=== PATIENT | male | born 1950 | race African-American/Black ===

== ENCOUNTER → 2017-03-23 | Outpatient (CLI) | payer MEDICARE ==
--- NOTE | 2017-03-23 10:33 | RADIOLOGY REPORT (SQ) ---
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 Images reviewed with lung, soft tissue and bone windows. Reconstructed coronal and sagittal MPR images reviewed. All images stored on PACS. All CT scanners at this facility use dose modulation, iterative reconstruction, and/or weight based d osing when appropriate to reduce radiation dose to as low as reasonably achievable (ALARA). [facility]: Dose Right [facility]: CareDose [facility]: Dose Right [facility]: Teradose 4D [facility]: [employer] CONTRAST TYPE AND DOSE: contrast/concentration: Isovue 370.00 mg/ml; Total Contrast Delivered: 80.0 ml; Total Saline Delivered: 55.0 ml RENAL FUNCTION: Creatinine 1.3 RADIATION DOSE: Up-to-date CT equipment and radiation dose reduction techniques were employed. CTDIv ol: 15.7 mGy. DLP: 609 mGy-cm. . LIMITATIONS: None. FINDINGS: LUNGS AND PLEURA: There are post therapeutic changes in the right perihilar region, with l kasia parenchymal volume loss, bandlike scarring and bronchiectasis likely related to remote prior radi ation. Stable scarring in the right posterior costophrenic sulcus of the lung. No acute infiltrates. No pleural effusion. No pneumothorax. Obstructive lung disease is present in the upper lobes. HILAR AND MEDIASTINAL STRUCTURES: No identified masses or abnormal nodes. HEART AND VASCULAR STRUCTURES: No aneurysm or dissection. No central pulmonary emboli. No pericardi al effusion. Heavily calcified coronary arteries HARDWARE: None in the chest. UPPER ABDOMEN: 3.7 cm right upper pole cortical cyst, 10 mm right upper pole probable hemorrhagic cys t unchanged from 2008. Limited exam. THYROID AND OTHER SOFT TISSUES: No masses. No adenopathy. BONES: No significant finding. OTHER: No other significant finding. IMPRESSION: No acute findings TECHNICAL DOCUMENTATION: JOB ID: [id number] Quality ID # [id number]: Final reports with documentation of one or more dose reduction techniques (e.g., Au tomated exposure control, adjustment of the mA and/or kV according to patient size, use of iterative reconstruction technique) 2010 [email or web address]- All Rights Reserved
== END ==
LOC: RAD 08:48
PROVIDERS: ATTEND Internal Medicine
DX: Z85.118 Personal history of other malignant neoplasm of bronchus and lung (principal); R05 Cough
CPT/HCPCS: 71260; 82565

== ENCOUNTER → 2017-04-17 | Outpatient (CLI) | payer MEDICARE ==
--- NOTE | 2017-04-17 13:05 | RADIOLOGY REPORT (SQ) ---
EXAM DESCRIPTION: KNEE LEFT 4 VIEWS COMPLETED DATE/TIME: 04/17/2017 12:16 pm REASON FOR STUDY: PAIN IN LEFT KNEE M25.562 PAIN IN LEFT KNEE COMPARISON: None. NUMBER OF VIEWS: Four views. TECHNIQUE: AP, lateral, and both oblique radiographic images acquired of the left knee. LIMITATIONS: None. FINDINGS: MINERALIZATION: Normal. BONES: No acute fracture or dislocation. No worrisome bone lesions. Lateral compartment osteophytes. JOINT: Joint effusion. Chondrocalcinosis. OTHER: No other significant finding. IMPRESSION: Chondrocalcinosis. Joint effusion. Lateral compartment osteophytes. TECHNICAL DOCUMENTATION: JOB ID: [id number] [employer]- All Rights Reserved
== END ==
LOC: OD 11:16
PROVIDERS: ATTEND Internal Medicine
DX: M25.562 Pain in left knee (principal)

== ENCOUNTER → 2017-08-18 | Outpatient (CLI) | payer MEDICARE ==
--- NOTE | 2017-08-18 11:42 | RADIOLOGY REPORT (SQ) ---
EXAM DESCRIPTION: CT CHEST WITH COMPLETED DATE/TIME: 08/18/2017 11:24 am REASON FOR STUDY: HEMOPTYSIS (R04.2) R04.2 HEMOPTYSIS COMPARISON: 09/26/2009, 02/11/2011, 06/29/2012, 09/13/2013, 09/29/2014, 03/23/2017 TECHNIQUE: CT scan of the chest performed using helical scanning technique with dynamic intravenous contrast injection. Images reviewed with lung, soft tissue and bone windows. Reconstructed coronal and sagittal MPR images reviewed. All images stored on PACS. All CT scanners at this facility use dose modulation, iterative reconstruction, and/or weight based d osing when appropriate to reduce radiation dose to as low as reasonably achievable (ALARA). [facility]: Dose Right [facility]: CareDose [facility]: Dose Right [facility]: Teradose 4D [facility]: [employer] CONTRAST TYPE AND DOSE: contrast/concentration: Isovue 370.00 mg/ml; Total Contrast Delivered: 80.0 ml; Total Saline Delivered: 37.2 ml RENAL FUNCTION: Creatinine 1.3 RADIATION DOSE: Up-to-date CT equipment and radiation dose reduction techniques were employed. CTDIv ol: 13.3 mGy. DLP: 523 mGy-cm. . LIMITATIONS: None. FINDINGS: LUNGS AND PLEURA: On the right side, bandlike scarring and bronchiectasis is present in th e right perihilar region in the medial right upper lobe from remote prior radiation therapy. This is similar over the series of exams dating back to 2008. On today's study, there is abnormal mucosal thickening in the distal trachea, proximal right mainstem bronchus and proximal left mainstem bronchus. It is difficult to discern by CT with a these are ret ained secretions or true mucosal overgrowths. Upper lobes are hyperlucent from obstructive disease. No other worrisome pulmonary nodules. No pleu ral thickening. No pleural effusions. Minimal chronic scarring right posterior costophrenic sulcus unchanged from 2010. HILAR AND MEDIASTINAL STRUCTURES: Volume loss and bronchiectasis in the medial right upper lobe/right upper hilum post radiation therapy. No masses or adenopathy. Small hiatal hernia. HEART AND VASCULAR STRUCTURES: No aneurysm or dissection. No central pulmonary emboli. No pericardi al effusion. Heavy coronary artery calcification. Moderate aortic valve calcification. HARDWARE: None in the chest. UPPER ABDOMEN: In the posterior right upper pole kidney, axial image 57 of 17 mm hyperdense nodule is present which is likely a hemorrhagic cyst. Renal ultrasound recommended to follow up this finding. THYROID AND OTHER SOFT TISSUES: No masses. No adenopathy. BONES: No significant finding. Multilevel degenerative disc changes thoracic spine OTHER: No other significant finding. IMPRESSION: Post therapeutic changes along the right upper hilum Retained secretion versus mucous membrane overgrowth or polyp formation in the proximal left mainstem and right mainstem bronchi. Hemorrhagic cyst versus solid nodule 1.7 cm in size, posterior right upper pole kidney for which meet l ultrasound is recommended for followup TECHNICAL DOCUMENTATION: JOB ID: [id number] Quality ID # [id number]: Final reports with documentation of one or more dose reduction techniques (e.g., Au tomated exposure control, adjustment of the mA and/or kV according to patient size, use of iterative reconstruction technique) 2010 [employer]- All Rights Reserved
== END ==
LOC: RAD 10:10
PROVIDERS: ATTEND Internal Medicine
DX: R04.2 Hemoptysis (principal)
CPT/HCPCS: 71260; 82565

== ENCOUNTER 2017-09-07 09:36 | Day surgery (SDC) | payer MEDICARE, MEDICAID ==
[2017-09-06 11:51] LABS: ABSOLUTE BASOPHILS # (AUTO) 0.1 10^3/uL (0.0-0.2); ABSOLUTE EOSINOPHILS # (AUTO) 0.6 10^3/uL (0.0-0.6); ABSOLUTE LYMPHOCYTES (AUTO) 1.2 10^3/uL (0.5-4.7); ABSOLUTE MONOCYTES (AUTO) 0.8 10^3/uL (0.1-1.4); ABSOLUTE NEUT (AUTO) 6.4 10^3/uL (1.7-8.2); BASOPHILS % (AUTO) 1.2 % (0-2); EOSINOPHILS % (AUTO) 6.4 % (0-6); HEMATOCRIT 42.3 % (37.9-51.0); HEMOGLOBIN 13.8 g/dL (13.5-17.0); HGB HCT DIFFERENCE -0.9; LYMPHOCYTES % (AUTO) 13.6 % (13-45); MEAN CORPUSCULAR HEMOGLOBIN 26.9 pg (27.0-33.4); MEAN CORPUSCULAR HGB CONC 32.6 g/dL (32.0-36.0); MEAN CORPUSCULAR VOLUME 83 fl (80-97); RED BLOOD COUNT 5.12 10^6/uL (4.35-5.55); RED CELL DISTRIBUTION WIDTH 16.7 % (11.5-14.0); SEGMENTED NEUTROPHILS % (AUTO) 69.8 % (42-78); WHITE BLOOD COUNT 9.1 10^3/uL (4.0-10.5)
[2017-09-06 12:00] LABS: PROTHROMBIN TIME 12.9 SEC (11.4-15.4)
[2017-09-06 12:01] LABS: PARTIAL THROMBOPLASTIN TIME 30.8 SEC (23.5-35.8)
[2017-09-06 12:28] LABS: ANION GAP 16 (5-19); BLOOD UREA NITROGEN 22 mg/dL (7-20); CALCIUM 8.6 mg/dL (8.4-10.2); CARBON DIOXIDE 34 mmol/L (22-30); CHLORIDE 95 mmol/L (98-107); CREATININE RESULT 1.25 mg/dL (0.52-1.25); GLUCOSE 102 mg/dL (75-110); POTASSIUM 3.7 mmol/L (3.6-5.0); SODIUM 144.6 mmol/L (137-145)
--- NOTE | 2017-09-06 13:21 | EKG REPORT ---
SEVERITY:- NORMAL ECG - SINUS RHYTHM : Confirmed by: Willie Huitron MD 06-Sep-2017 13:21:20
[~2017-09-07 09:36] MED LIST: ALBUTEROL SULFATE 0.083% NEB 2.5 MG/3 ML AMPUL NEB PRN; LACTATED RINGERS 1000 ML IV PRN; LIDOCAINE 4% INJ/PF (40 MG/ML) 5 ML AMPUL NEB PRN
[2017-09-07] MEDS ORDERED: FENTANYL CITRATE INJ/PF 100 MCG/2 ML AMPUL ONE (11:33)
[2017-09-07] MEDS ORDERED: HYDROMORPHONE HCL INJ/PF 2 MG/ML AMPULE ONE (11:33)
[2017-09-07] MEDS ORDERED: MIDAZOLAM 2 MG/2 ML INJ ONE (11:33)
[2017-09-07] MEDS ORDERED: PROPOFOL INJ 200 MG/20 ML VIAL IV ONE (11:34)
[2017-09-07] MEDS ORDERED: SUCCINYLCHOLINE CHLORIDE INJ 200 MG/10 ML VIAL ONE (11:35)
[2017-09-07] MEDS ORDERED: ONDANSETRON HCL INJ/PF 4 MG/2 ML SDV ONE (11:35)
[2017-09-07] MEDS ORDERED: DEXAMETHASONE SOD PHOSPHATE INJ 4 MG/1 ML VIAL ONE (11:35)
[2017-09-07] MEDS ORDERED: METOCLOPRAMIDE HCL INJ/PF 10 MG/2 ML SDV ONE (11:35)
[2017-09-07] MEDS ORDERED: PHENYLEPHRINE HCL INJ/PF 10 MG/1 ML SDV ONE (11:35)
[2017-09-07] MEDS ORDERED: NALOXONE HCL INJ/PF 0.4 MG/1 ML SDV ONE (14:12)
--- NOTE | 2017-09-07 14:47 | Operative Report ---
Operative Report DATE OF SURGERY: 09/07/17 Operative Report: Patient was kept n.p.o. 14 hours prior to procedure taken to the preoperative area where consents were reviewed questions answered IV access was established was taken to bronchoscopy suite where per anesthesia the patient was intubated with a #8 ET tube after rapid induction. Then using T-cells [employer] scope was tracheobronchial tree was explored. There were no abnormalities of the distal trachea but there was some splaying of the deja there were a submucosal swelling in the right mainstem bronchus the right upper lobe and the proximal part of the right bronchus intermedius right middle lobe in the right lower lobe appeared to be within normal limits. There was a large mass in the proximal end of the little left mainstem bronchus the rest of the left mainstem bronchus appeared to be within normal limits and there appeared to be some submucosal masses in the left upper lobe as well as the lingula. The left main bronchus lesion as well as the right upper lobe was lavaged and biopsied and specimens have been sent to the lab for appropriate cultures and studies. Patient tolerated the procedure well postprocedure SaO2 was 97% postprocedure chest x-ray is in progress at this time PREOPERATIVE DIAGNOSIS: Right lung mass POSTOPERATIVE DIAGNOSIS: Bilateral lung masses OPERATION: Fiberoptic bronchoscopy with bronchoalveolar lavage and transbronchial biopsy SURGEON: [place] [facility] ANESTHESIA: GA TISSUE REMOVED OR ALTERED: Bronchoalveolar lavage. Transbronchial biopsy COMPLICATIONS: None ESTIMATED BLOOD LOSS: 0ml
[2017-09-07] MEDS ORDERED: EPINEPHRINE INJ 1 MG/10 ML DISP.SYRIN ONE (14:52)
--- NOTE | 2017-09-07 15:31 | RADIOLOGY REPORT (SQ) ---
EXAM DESCRIPTION: NO CHG FLUORO COMPLETE DATE/TIME: 09/07/2017 2:53 pm REASON FOR STUDY: LUNG BX R04.2 HEMOPTYSIS R91.8 OTHER NONSPECIFIC ABNORMAL FINDING OF LUNG FIELD J96.11 CHRONIC RESPIRATORY FAILURE WITH HYPOXIA FINDINGS: Please see combined report for performance of procedure and radiologic supervision and int erpretation. IMPRESSION: Please see combined report for performance of procedure and radiologic supervision and i nterpretation.
--- NOTE | 2017-09-07 15:31 | RADIOLOGY REPORT (SQ) ---
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 FLUOROSCOPY TIME: Total fluoroscopy time was 0.5 minutes. Spot images saved to PACS. TECHNIQUE: Intra-operative images acquired during surgical procedure to evaluate progress. NUMBER OF IMAGES: 10 LIMITATIONS: None. FINDINGS: Fluoroscopy was provided for intraoperative procedure. Please refer to the operative repo rt for further discussion. IMPRESSION: IMAGE(S) OBTAINED DURING PROCEDURE. COMMENT: Quality ID 145: Final reports for procedures using fluoroscopy that document radiation exp osure indices, or exposure time and number of fluorographic images (if radiation exposure indices are not available) Please consult full operative report of the attending physician for description of the procedure. TECHNICAL DOCUMENTATION: JOB ID: [id number] [employer]- All Rights Reserved
--- NOTE | 2017-09-07 15:33 | RADIOLOGY REPORT (SQ) ---
EXAM DESCRIPTION: CHEST SINGLE VIEW COMPLETED DATE/TIME: 09/07/2017 2:35 pm REASON FOR STUDY: POST LUNG BX COMPARISON: 08/18/2017 EXAM PARAMETERS: NUMBER OF VIEWS: One view. TECHNIQUE: Single frontal radiographic view of the chest acquired. RADIATION DOSE: NA LIMITATIONS: None. FINDINGS: LUNGS AND PLEURA: There is persistent linear opacity in the right upper lobe. No pneumoth orax. No effusions. MEDIASTINUM AND HILAR STRUCTURES: No masses. Contour normal. HEART AND VASCULAR STRUCTURES: Heart normal in size. Normal vasculature. BONES: No acute findings. HARDWARE: None in the chest. OTHER: No other significant finding. IMPRESSION: Right upper lobe opacity which could represent scar, atelectasis or pneumonia. No pneum othorax. TECHNICAL DOCUMENTATION: JOB ID: [id number] [employer]- All Rights Reserved
[2017-09-07 15:41] LABS: FLUID RBC DILUENT USED SALINE; FLUID RBC DILUTION FACTOR 10; FLUID RBC SIDE 1 145; FLUID RBC SIDE 2 143; TOTAL RBC SQUARES COUNTED FLD 25
[2017-09-07 15:42] LABS: FLUID TYPE BRONCHIAL WASH; STAIN REACTIVITY CHECK ACCEPTABLE
[2017-09-07 15:43] LABS: FLUID APPEARANCE CLOUDY
[2017-09-07 17:11] VITALS: BP 132/84
[2017-09-07] MEDS ORDERED: ACETAMINOPHEN 325 MG TABLET PO SCH (18:00)
== END 2017-09-07 17:05 | disposition home or self-care (01) ==
LOC: OROUT 09:36
PROVIDERS: ATTEND Internal Medicine Pulmonary Disease
PROC: 0BBD8ZX Excision of Right Middle Lung Lobe, Via Natural or Artificial Opening Endoscopic, Diagnostic (ICD-10-PCS; principal; 2017-09-07 13:00)
DX: Z87.891 Personal history of nicotine dependence (principal); I10 Essential (primary) hypertension; R05 Cough; R91.8 Other nonspecific abnormal finding of lung field; E66.9 Obesity, unspecified; Z79.899 Other long term (current) drug therapy; Z68.30 Body mass index [BMI] 30.0-30.9, adult
CPT/HCPCS: 31628; 31624; 93005; 36415; 87070; 87205; 87206; 87116; 87101; 85025; 85610; 85730; 89050; 80048; 87015; 88162; 88342 ×2; 88341 ×2; 88305 ×2; 88312 ×2; 71010; 93010; J2250; J1100; J0171; J2765; J2310; J1170; J2370; J0330; J2405; J2704; J3490; A9270; 520; J3010

== ENCOUNTER → 2018-02-15 | Outpatient (CLI) | payer MEDICAID, MEDICARE ==
--- NOTE | 2018-02-15 14:56 | RADIOLOGY REPORT (SQ) ---
EXAM DESCRIPTION: U/S RETROPERITON (RENAL/AORTA) COMPLETED DATE/TIME: 02/15/2018 2:35 pm REASON FOR STUDY: ABN KIDNEY FUNCTION R94.4 ABNORMAL RESULTS OF KIDNEY FUNCTION STUDIES COMPARISON: None. TECHNIQUE: Dynamic and static grayscale images acquired of the kidneys and bladder and recorded on P ACS. Additional selected color Doppler and spectral images recorded. LIMITATIONS: None. FINDINGS: RIGHT KIDNEY: 9.1 cm. Cortical thinning. Several cysts, the largest 6 cm. Hydronephrosi s. LEFT KIDNEY: 11.0 cm. Cortical thinning. No hydronephrosis. BLADDER: No masses. OTHER FINDINGS: No other significant finding. IMPRESSION: No hydronephrosis. TECHNICAL DOCUMENTATION: JOB ID: [id number] [employer]- All Rights Reserved Reading location - IP/workstation name: [email or web address]
== END ==
LOC: RAD 14:17
PROVIDERS: ATTEND Internal Medicine
DX: R94.4 Abnormal results of kidney function studies (principal)
CPT/HCPCS: 76770

== ENCOUNTER 2018-04-12 06:24 | Day surgery (SDC) | payer MEDICARE, MEDICAID ==
[~2018-04-12 06:24] MED LIST changes: -ALBUTEROL SULFATE 0.083% NEB 2.5 MG/3 ML AMPUL NEB PRN; +KETOROLAC TROMETHAMINE 0.45% 4 DROP/0.4 ML DROPERETTE OD PRN; -LACTATED RINGERS 1000 ML IV PRN; -LIDOCAINE 4% INJ/PF (40 MG/ML) 5 ML AMPUL NEB PRN; +TETRACAINE HCL 0.5% OPH SOLN 0.6 ML DROPERETTE OD PRN; +TETRACAINE HCL 0.5% OPH SOLN 2 ML ONE
[2018-04-12] MEDS: CYCLOPENTOLATE 0.2%/PHENYLEPHRINE 1% OPH SOLN 2 ML OD PRN ×3 (07:05→07:25)
[2018-04-12] MEDS: TETRACAINE HCL 0.5% OPH SOLN 2 ML OD PRN ×2 (07:05→07:25)
[2018-04-12] MEDS: BESIFLOXACIN HCL 0.6% OPH SUSP 5 ML BOTTLE OD PRN ×4 (07:05→08:11)
[2018-04-12] MEDS: TROPICAMIDE 1% OPH SOLN 3 ML OD PRN ×3 (07:05→07:25)
[2018-04-12] MEDS ORDERED: EPINEPHRINE INJ/PF 1 MG/1 ML AMPULE ONE (07:09)
[2018-04-12] MEDS ORDERED: LIDOCAINE 1% INJ-PF (10 MG/ML) 30 ML SDV ONE (07:09)
[2018-04-12] MEDS ORDERED: CHONDR SU A NA/HYALUR INTRAOC KIT (SURGICARE) ONE (07:09)
[2018-04-12] MEDS ORDERED: MIDAZOLAM 2 MG/2 ML INJ ONE (07:25)
--- NOTE | 2018-04-12 16:35 | [facility] OPERATIVE REPORT E ---
[facility] Operative Report NAME: KATHRYN GARCIA AGE: 67Y DATE OF SURGERY: 04/12/2018 ROOM: PREOPERATIVE DIAGNOSIS: CATARACT, RIGHT EYE. POSTOPERATIVE DIAGNOSIS: CATARACT, RIGHT EYE. OPERATION: Cataract extraction with insertion of an IOL of the right eye. SURGEON: GLORIA HAYES M.D. ANESTHESIA: Topical. PROCEDURE: After obtaining appropriate consent, the patient's right eye was prepped and draped in sterile fashion as well as the surgeon in a sterile manner and cataract surgery was started. First a paracentesis blade was used to make a side-port incision. Viscoelastic was used to inflate the anterior chamber. Next a 2.4 mm incision was made with a 2.4 mm blade, clear corneal temporally. A continuous capsulorrhexis was made using a cystotome and Utrata forceps. Following this hydrodissection was carried out to make the lens fully loose and mobile and it was rotated 90 degrees. Following this, a wzggsc-fee-mrmuexn technique was used to phacoemulsify the lens with a CDE of 8.63. The remaining cortex was removed with irrigation/aspiration. Provisc was instilled into the capsular bag to inflate the bag. A SN60WF, 21.0 diopter lens was placed. The remaining viscoelastic material was removed with irrigation/aspiration. Following this, the incision was found to be watertight. Besivance was instilled into the eye and a protective shield was placed over the eye. The patient returned to the postoperative recovery in stable condition. DICTATING PHYSICIAN: GLORIA HAYES M.D. [id number] PHY#: [id number] ID: [id number] JOB#: [id number] ACCT: [id number] cc:GLORIA HAYES M.D. >
--- NOTE | 2018-04-12 16:37 | DISCHARGE SUMMARY E ---
Discharge Summary NAME: KATHRYN GARCIA : 1950 AGE: 67Y ADMITTED: 04/12/2018 DISCHARGED: HOSPITAL COURSE: This is a 67-year-old male who underwent cataract extraction of the right eye. DIAGNOSIS: CATARACT, RIGHT EYE. The patient underwent surgery because he was having difficulty seeing small print on road signs. DISCHARGE INSTRUCTIONS: He should be on a regular diet. No bending at his waist, no heavy lifting. He should use his Besivance, Ilevro, and Durezol at 3 p.m. and 8 p.m. and sleep with a rigid shield. I will see him for his 1 day postoperative tomorrow. DICTATING PHYSICIAN: GLORIA HAYES M.D. [id number] PHY#: [id number] ID: [id number] JOB#: [id number] ACCT: [id number] cc:GLORIA HAYES M.D. >
== END 2018-04-12 09:08 | disposition home or self-care (01) ==
LOC: SC 06:24
PROVIDERS: ATTEND Internal Medicine
DX: H25.813 Combined forms of age-related cataract, bilateral (principal); I10 Essential (primary) hypertension; E78.00 Pure hypercholesterolemia, unspecified; J44.9 Chronic obstructive pulmonary disease, unspecified; G47.30 Sleep apnea, unspecified; Z87.891 Personal history of nicotine dependence; Z79.51 Long term (current) use of inhaled steroids; Z85.118 Personal history of other malignant neoplasm of bronchus and lung; Z99.81 Dependence on supplemental oxygen
CPT/HCPCS: 66984; V2632; J2250; J3490 ×2; A9270; J0171; 142

== ENCOUNTER 2018-05-03 10:38 | Day surgery (SDC) | payer MEDICARE, MEDICAID ==
[~2018-05-03 10:38] MED LIST changes: +EPINEPHRINE INJ/PF 1 MG/1 ML AMPULE ONE; -KETOROLAC TROMETHAMINE 0.45% 4 DROP/0.4 ML DROPERETTE OD PRN; +KETOROLAC TROMETHAMINE 0.45% 4 DROP/0.4 ML DROPERETTE OS PRN; -TETRACAINE HCL 0.5% OPH SOLN 0.6 ML DROPERETTE OD PRN; -TETRACAINE HCL 0.5% OPH SOLN 2 ML ONE
[2018-05-03] MEDS: TROPICAMIDE 1% OPH SOLN 3 ML OS PRN ×3 (11:20→11:57)
[2018-05-03] MEDS: CYCLOPENTOLATE 0.2%/PHENYLEPHRINE 1% OPH SOLN 2 ML OS PRN ×3 (11:20→11:57)
[2018-05-03] MEDS: BESIFLOXACIN HCL 0.6% OPH SUSP 5 ML BOTTLE OS PRN ×4 (11:21→12:25)
[2018-05-03] MEDS: TETRACAINE HCL 0.5% OPH SOLN 2 ML OS PRN ×3 (11:22→12:04)
[2018-05-03] MEDS ORDERED: MIDAZOLAM 2 MG/2 ML INJ ONE (11:38)
[2018-05-03] MEDS ORDERED: ALBUTEROL SULFATE 0.083% NEB 2.5 MG/3 ML AMPUL NEB ONE (11:45)
[2018-05-03] MEDS: LIDOCAINE 1% INJ-PF (10 MG/ML) 30 ML SDV ONE ×2 (12:11→12:15)
[2018-05-03] MEDS: EPINEPHRINE INJ/PF 1 MG/1 ML AMPULE ONE ×2 (12:12→12:15)
[2018-05-03] MEDS: CHONDR SU A NA/HYALUR INTRAOC KIT (SURGICARE) ONE ×2 (12:14→12:15)
--- NOTE | 2018-05-03 20:00 | [facility] OPERATIVE REPORT E ---
[facility] Operative Report NAME: KATHRYN GARCIA AGE: 67Y DATE OF SURGERY: 05/03/2018 ROOM: PREOPERATIVE DIAGNOSIS: CATARACT, LEFT EYE. POSTOPERATIVE DIAGNOSIS: CATARACT, LEFT EYE. OPERATION: Cataract extraction with insertion of an IOL of the left eye. SURGEON: GLORIA HAYES M.D. ANESTHESIA: Topical. PROCEDURE: After obtaining appropriate consent, the patient's left eye was prepped and draped in sterile fashion as well as the surgeon in a sterile manner and cataract surgery was started. First a paracentesis blade was used to make a side-port incision. Viscoelastic was used to inflate the anterior chamber. Next a 2.4 mm incision was made with a 2.4 mm blade, clear corneal temporally. A continuous capsulorrhexis was made using a cystotome and Utrata forceps. Following this hydrodissection was carried out to make the lens fully loose and mobile and it was rotated 90 degrees. Following this, a ruavqi-rcc-ijwuwcj technique was used to phacoemulsify the lens with a CDE of 12.56. The remaining cortex was removed with irrigation/aspiration. Provisc was instilled into the capsular bag to inflate the bag. A SN60WF, 21.5 diopter lens was placed. The remaining viscoelastic material was removed with irrigation/aspiration. Following this, the incision was found to be watertight. Besivance was instilled into the eye and a protective shield was placed over the eye. The patient returned to the postoperative recovery in stable condition. DICTATING PHYSICIAN: GLORIA HAYES M.D. [id number] PHY#: [id number] ID: [id number] JOB#: [id number] ACCT: [id number] cc:GLORIA HAYES M.D. >
--- NOTE | 2018-05-03 20:00 | [facility] DISCHARGE SUMMARY E ---
[facility] Discharge Summary NAME: KATHRYN GARCIA AGE: 67Y ADMITTED: 05/03/2018 DISCHARGED: 05/03/2018 HOSPITAL COURSE: This is a 67-year-old male who underwent cataract extraction of the left eye. DIAGNOSIS: CATARACT, LEFT EYE. He underwent surgery because he was having difficulty driving at night secondary to glare from headlights. DISCHARGE INSTRUCTIONS: He should be on a regular diet. No bending at his waist, no heavy lifting. He should use his Besivance, Ilevro, and Durezol at 3 p.m. and 8 p.m. and sleep with a rigid shield. I will see him for his 1 day postoperative tomorrow. DICTATING PHYSICIAN: GLORIA HAYES M.D. [id number] PHY#: [id number] ID: [id number] JOB#: [id number] ACCT: [id number] cc:GLORIA HAYES M.D. >
== END 2018-05-03 13:18 | disposition home or self-care (01) ==
LOC: SC 10:38
PROVIDERS: ATTEND Internal Medicine
DX: H25.812 Combined forms of age-related cataract, left eye (principal); Z96.1 Presence of intraocular lens; J44.9 Chronic obstructive pulmonary disease, unspecified; I10 Essential (primary) hypertension; Z79.51 Long term (current) use of inhaled steroids; Z79.899 Other long term (current) drug therapy; Z79.82 Long term (current) use of aspirin; Z85.118 Personal history of other malignant neoplasm of bronchus and lung
CPT/HCPCS: 66984; V2632; J2250; J3490 ×2; A9270 ×2; J0171; 142

== ENCOUNTER → 2018-09-03 | Outpatient (CLI) | payer MEDICARE, MEDICAID ==
--- NOTE | 2018-09-03 12:29 | RADIOLOGY REPORT (SQ) ---
EXAM DESCRIPTION: KNEE RIGHT 2 VIEWS COMPLETED DATE/TIME: 09/03/2018 12:08 pm REASON FOR STUDY: CARYL PRIMARY OSTEOARTHRITIS OF KNEE M17.0 BILATERAL PRIMARY OSTEOARTHRITIS OF KNEE COMPARISON: None. NUMBER OF VIEWS: Two views. TECHNIQUE: AP and lateral radiographic images acquired of the right knee. LIMITATIONS: None. FINDINGS: MINERALIZATION: Normal. BONES: No acute fracture or dislocation. Mild joint space narrowing with small osteophytes. No worr isome bone lesions. JOINT: Faint chondrocalcinosis. No effusion. SOFT TISSUES: No soft tissue swelling. No radio-opaque foreign body. OTHER: No other significant finding. IMPRESSION: DEGENERATIVE CHANGES. NO RADIOGRAPHIC EVIDENCE OF ACUTE INJURY. TECHNICAL DOCUMENTATION: JOB ID: [id number] [employer]- All Rights Reserved Reading location - IP/workstation name: [email or web address]
--- NOTE | 2018-09-03 12:29 | RADIOLOGY REPORT (SQ) ---
EXAM DESCRIPTION: KNEE LEFT 2 VIEWS COMPLETED DATE/TIME: 09/03/2018 12:08 pm REASON FOR STUDY: CARYL PRIMARY OSTEOARTHRITIS OF KNEE M17.0 BILATERAL PRIMARY OSTEOARTHRITIS OF KNEE COMPARISON: None. NUMBER OF VIEWS: Two views. TECHNIQUE: AP and lateral radiographic images acquired of the left knee. LIMITATIONS: None. FINDINGS: MINERALIZATION: Normal. BONES: No acute fracture or dislocation. Mild joint space narrowing with small osteophytes No worris ome bone lesions. JOINT: Faint chondrocalcinosis. No effusion. SOFT TISSUES: No soft tissue swelling. No radio-opaque foreign body. OTHER: No other significant finding. IMPRESSION: DEGENERATIVE CHANGES. NO RADIOGRAPHIC EVIDENCE OF ACUTE INJURY. TECHNICAL DOCUMENTATION: JOB ID: [id number] [employer]- All Rights Reserved Reading location - IP/workstation name: [email or web address]
== END ==
LOC: OD 11:44
PROVIDERS: ATTEND Internal Medicine
DX: M17.0 Bilateral primary osteoarthritis of knee (principal)

== ENCOUNTER 2019-01-11 11:59 | Observation (INO) | payer MEDICARE, MEDICAID ==
--- NOTE | 2019-01-11 12:33 | ER Document Report ---
ED General - General Chief Complaint: Respiratory Distress Stated Complaint: CHEST PAIN, SHORTNESS OF BREATH Time Seen by Provider: 01/11/19 12:28 Notes: Patient says he is having difficulty breathing and some chest pains. He has a history of COPD and is on home oxygen at 3 L. He had a routine appointment to be seen in the local locker room attendant office today and they were concerned about his oxygen level and breathing and sent him here. Patient says the breathing is the same as it is been for quite some time. He also has anterior chest pains which are new today. Patient drove himself to his appointment with Dr. Zhang this morning and then drove himself over here to the emergency department. Says he has had some chest congestion and for the past week is been coughing up some green and brown looking material, no blood. Has not had any fever. Patient is an ex-smoker, stopped in 1998. Has had a history of CHF in the past. No heart disease otherwise. TRAVEL OUTSIDE OF THE [place] IN LAST 30 DAYS: No - Related Data Allergies/Adverse Reactions: No Known Allergies Allergy (Verified 04/12/18 07:09) Past Medical History - Social History Smoking Status: Former Smoker - Stopped in 1998. Family History: Reviewed & Not Pertinent - Past Medical History Cardiac Medical History: Reports: Hx Congestive Heart Failure, Hx Hypercholeste rolemia, Hx Hypertension - MEDICATION Denies: Hx Heart Attack Pulmonary Medical History: Reports: Hx COPD Denies: Hx Asthma GI Medical History: Denies: Hx Hepatitis, Hx Hiatal Hernia, Hx Ulcer Musculoskeletal Medical History: Reports Hx Arthritis Infectious Medical History: Denies: Hx Hepatitis Past Surgical History: Reports: Hx Herniorrhaphy, Hx Rectal Surgery, Other - Collapsed lung surgery - Immunizations Immunizations up to date: Yes Hx Diphtheria, Pertussis, Tetanus Vaccination: Yes Review of Systems - Review of Systems Notes: REVIEW OF SYSTEMS: CONSTITUTIONAL : Denies fever. EENT: Denies eye, ear, nose or mouth or throat pain or other symptoms. CARDIOVASCULAR: See HPI. RESPIRATORY: See HPI. GASTROINTESTINAL: Denies abdominal pain or nausea, vomiting, or diarrhea. GENITOURINARY: Denies difficulty or painful urinating, urinary frequency, blood in urine. MUSCULOSKELETAL: Denies back or neck pain. Denies joint pain or swelling. SKIN: Denies rash or skin lesions. NEUROLOGICAL: Denies LOC or altered mental status. Denies headache. Denies sensory loss or motor deficits. ALL OTHER SYSTEMS REVIEWED AND NEGATIVE. Physical Exam - Vital signs Vitals: Resp Pulse Ox 18 99 01/11/19 12:07 01/11/19 12:07 Interpretation: Hypoxic - O2 sat in triage 81% on room air. However, at the bedside, at this time, patient has O2 sats in the low 90s on 1 or 2 L of oxygen.. No: Febrile Notes: PHYSICAL EXAMINATION: GENERAL: Well-appearing, in no acute distress. O2 by nasal cannula. HEAD: Atraumatic, normocephalic. EYES: Pupils equal round and reactive to light, extraocular movements intact. ENT: oropharynx clear without exudates. Moist mucous membranes. NECK: Normal range of motion, supple. LUNGS: Distant but equal breath sounds bilaterally. No wheezes heard at this time HEART: Regular rate and rhythm without murmurs. ABDOMEN: Soft, nontender. No guarding or rebound. No masses. BACK: No tenderness throughout entire back. EXTREMITIES: Normal range of motion without pain. No edema noted. Negative Homans. NEUROLOGICAL: Normal speech, normal gait. Normal sensory, motor, and reflex exams. Awake, alert, and oriented x3. Cranial nerves normal. PSYCH: Normal mood, normal affect. SKIN: Warm, dry, no rashes. Course - Re-evaluation Re-evalutation: 01/11/19 14:40 Patient's workup for his breathing difficulty and chest pain are all essentially normal. Troponin and CK-MB are negative. BNP is only 378. Chest x-ray is normal. Patient does have some evidence of renal insufficiency with a creatinine of 2.34 and a BUN of 49. Patient was given DuoNeb and Solu-Medrol IV. I contacted Dr. Dawson who will admit the patient for further care as an inpatient. . - Vital Signs Vital signs: Temp Pulse Resp BP Pulse Ox 98.4 F 15 124/79 99 01/11/19 15:00 01/11/19 16:01 01/11/19 16:00 01/11/19 16:01 - Laboratory Result Diagrams: 01/11/19 12:15 01/11/19 12:15 Laboratory results interpreted by me: 01/11/19 01/11/19 12:15 12:15 RBC 3.66 L Hgb 10.5 L Hct 32.5 L RDW 14.5 H Eosinophils % 6.2 H Carbon Dioxide 35 H BUN 49 H Creatinine 2.34 H Est GFR ( Amer) 34 L Est GFR (Non-Af Amer) 28 L Glucose 128 H ALT 13 L Creatine Kinase 198 H - Diagnostic Test Radiology results interpreted by me: 01/11/19 14:39 Chest x-ray is normal. - EKG Interpretation by Me EKG shows normal: Sinus rhythm Rate: Normal Rhythm: NSR Additional EKG results interpreted by me: 01/11/19 12:[address] changes with some minor elevation which the machine reads as possible pericarditis. I think is probably normal variant. Previous EKG on September 062016 showed some minor similar ST changes. Critical Care Note - Critical Care Note Total time excluding time spent on procedures (mins): 20 Discharge - Discharge Clinical Impression: COPD with exacerbation, Chest pain Condition: Stable Disposition: ADMITTED OBSERVATION Admitting Provider: [facility] Admitted: Telemetry
[2019-01-11 12:54] LABS: ABSOLUTE BASOPHILS # (AUTO) 0.1 10^3/uL (0.0-0.2); ABSOLUTE EOSINOPHILS # (AUTO) 0.6 10^3/uL (0.0-0.6); ABSOLUTE LYMPHOCYTES (AUTO) 1.4 10^3/uL (0.5-4.7); ABSOLUTE NEUT (AUTO) 5.8 10^3/uL (1.7-8.2); BASOPHILS % (AUTO) 1.5 % (0-2); EOSINOPHILS % (AUTO) 6.2 % (0-6); HEMATOCRIT 32.5 % (37.9-51.0); HEMOGLOBIN 10.5 g/dL (13.5-17.0); MEAN CORPUSCULAR HEMOGLOBIN 28.6 pg (27.0-33.4); MEAN CORPUSCULAR HGB CONC 32.2 g/dL (32.0-36.0); MEAN CORPUSCULAR VOLUME 89 fl (80-97); MONOCYTES % (AUTO) 11.4 % (3-13); PLATELET COUNT 175 10^3/uL (150-450); RED BLOOD COUNT 3.66 10^6/uL (4.35-5.55); RED CELL DISTRIBUTION WIDTH 14.5 % (11.5-14.0); SEGMENTED NEUTROPHILS % (AUTO) 64.9 % (42-78); TOTAL CELLS COUNTED % (AUTO) 100 %; WHITE BLOOD COUNT 8.9 10^3/uL (4.0-10.5)
--- NOTE | 2019-01-11 12:59 | RADIOLOGY REPORT (SQ) ---
EXAM DESCRIPTION: CHEST SINGLE VIEW COMPLETED DATE/TIME: 01/11/2019 12:48 pm REASON FOR STUDY: Short of breath, Hx COPD COMPARISON: CT chest 03/23/2017, 08/18/2017 Chest films 01/15/2015, 09/07/2017 EXAM PARAMETERS: NUMBER OF VIEWS: One view. TECHNIQUE: Single frontal radiographic view of the chest acquired. RADIATION DOSE: NA LIMITATIONS: None. FINDINGS: LUNGS AND PLEURA: No opacities, masses or pneumothorax. No pleural effusion. MEDIASTINUM AND HILAR STRUCTURES: Stable fullness along the right hilum post radiation therapy. HEART AND VASCULAR STRUCTURES: Stable mild cardiomegaly BONES: No acute findings. HARDWARE: None in the chest. OTHER: No other significant finding. IMPRESSION: No acute findings. Old post radiation change right hilum TECHNICAL DOCUMENTATION: JOB ID: [id number] [email or web address]- All Rights Reserved Reading location - IP/workstation name: [email or web address]
[2019-01-11 13:11] LABS: ALANINE AMINOTRANSFERASE 13 U/L (21-72); ALKALINE PHOSPHATASE 63 U/L (38-126); ANION GAP 7 (5-19); ASPARTATE AMINO TRANSFERASE 52 U/L (17-59); BILIRUBIN,DIRECT 0.3 mg/dL (0.0-0.4); BILIRUBIN,TOTAL 0.4 mg/dL (0.2-1.3); BLOOD UREA NITROGEN 49 mg/dL (7-20); CALCIUM 9.9 mg/dL (8.4-10.2); CARBON DIOXIDE 35 mmol/L (22-30); CHLORIDE 99 mmol/L (98-107); CREATINE KINASE 198 U/L (55-170); GLUCOSE 128 mg/dL (75-110); POTASSIUM 4.5 mmol/L (3.6-5.0); TOTAL PROTEIN 7.5 g/dL (6.3-8.2)
[2019-01-11 13:24] LABS: CREATINE KINASE MB 1.26 ng/mL (<4.55); NT PRO BNP 378 pg/mL (5-900)
[2019-01-11 13:25] LABS: TROPONIN I < 0.012 ng/mL
--- NOTE | 2019-01-11 13:25 | EKG REPORT ---
SEVERITY:- ABNORMAL ECG - SINUS RHYTHM ST ELEVATION SUGGESTS PERICARDITIS : Confirmed by: Willie Huitron MD 11-Jan-2019 13:24:08
[2019-01-11] MEDS ORDERED: METHYLPREDNISOLONE INJ 125 MG/2 ML SDV IV ONE (14:33)
[2019-01-11] MEDS ORDERED: IPRATROPIUM/ALBUTEROL 0.5-2.5 MG/3 ML AMPUL NEB ONE (14:33)
[2019-01-11] MEDS ORDERED: ALBUTEROL SULFATE HFA (90 MCG/PUFF) 8 GM MDI (1 MDI/ER DISP) IH PRN (18:21)
[2019-01-11] MEDS ORDERED: (PENDING PHARMACY ID) (Losartan/Hydrochlorothiazide [Hyzaar 100-12.5 Tablet] 1 TAB) PO SCH (18:30)
[2019-01-11] MEDS ORDERED: (PENDING PHARMACY ID) (Bisoprolol Fumarate [Zebeta 5 Mg Tablet] 5 MG) PO SCH (18:30)
--- NOTE | 2019-01-11 18:56 | RADIOLOGY REPORT (SQ) ---
EXAM DESCRIPTION: CT CHEST WITHOUT COMPLETED DATE/TIME: 01/11/2019 6:40 pm REASON FOR STUDY: copd,pneumonia J18.9 PNEUMONIA, UNSPECIFIED ORGANISM COMPARISON: 01/11/2019 and 08/18/2017 TECHNIQUE: CT scan performed of the chest without intravenous contrast. Images reviewed with lung, soft tissue and bone windows. Reconstructed coronal and sagittal MPR images reviewed. All images st ored on PACS. All CT scanners at this facility use dose modulation, iterative reconstruction, and/or weight based d osing when appropriate to reduce radiation dose to as low as reasonably achievable (ALARA). [facility]: Dose Right [facility]: CareDose [facility]: Dose Right [facility]: Teradose 4D [facility]: [employer] RADIATION DOSE: CT Rad equipment meets quality standard of care and radiation dose reduction techniq ues were employed. CTDIvol: 16.3 mGy. DLP: 627 mGy-cm. mGy. LIMITATIONS: No technical limitations. FINDINGS: LUNGS AND PLEURA: Stable scarring and postradiation changes in the right mid lung with ass ociated bronchiectasis. Mild paraseptal emphysematous changes in the lung apices. No dominant nodul e or mass appreciated. Stable scarring in the right lung base. HILAR AND MEDIASTINAL STRUCTURES: No identified masses or abnormal nodes. No obvious aneurysm. HEART AND VASCULAR STRUCTURES: Diffuse coronary artery calcifications are present. Mural aortic calc ifications are also noted. No evidence of aortic aneurysm. UPPER ABDOMEN: Multiple hyperdense cysts in the kidneys bilaterally, not significantly changed from p rior exam and consistent with hemorrhagic cysts. Remainder the visualized upper abdomen is grossly u nremarkable. THYROID AND OTHER SOFT TISSUES: No masses. No adenopathy. BONES: No significant finding. HARDWARE: None in the chest. OTHER: No other significant findings. IMPRESSION: Stable chronic changes when compared to 2017. No evidence of acute process. TECHNICAL DOCUMENTATION: JOB ID: [id number] Quality ID # [id number]: Final reports with documentation of one or more dose reduction techniques (e.g., Au tomated exposure control, adjustment of the mA and/or kV according to patient size, use of iterative reconstruction technique) 2010 [email or web address]- All Rights Reserved Reading location - IP/workstation name: [email or web address]
[2019-01-11] MEDS: NORMAL SALINE 1000 ML 1,000 ML IV PRN (19:00)
[2019-01-11 19:08] LABS: ARTERIAL BLOOD BASE EXCESS 6.6 mmol/L; ARTERIAL BLOOD H2CO3 1.79 mmol/L (1.05-1.35); ARTERIAL BLOOD HCO3 33.4 mmol/L (20-24); ARTERIAL BLOOD O2 SATURATION 93.5 % (94-98); ARTERIAL BLOOD PCO2 59.5 mmHg (35-45); ARTERIAL BLOOD PH 7.37 (7.35-7.45); ARTERIAL BLOOD PO2 71.6 mmHg (80-100); ARTERIAL BLOOD TOTAL CO2 35.2 mmol/L (23-27)
[2019-01-11 19:09] LABS: ARTERIAL BLOOD FIO2 32%
[2019-01-11 21:49] LABS: TROPONIN I < 0.012 ng/mL
[2019-01-11] MEDS ORDERED: BRIMONIDINE TARTRATE 0.2% OPH SOLN 5 ML OU ONE (22:15)
--- NOTE | 2019-01-11 22:43 | PDOC H&P ---
History of Present Illness Admission Date/PCP: 01/11/19 14:52 CANDIE MARSH MD History of Present Illness: KATHRYN GARCIA is a 68 year old male, He has chronic respiratory failure on home oxygen he saw Dr. Zhang cardiology in his office today the oxygen saturation was low, he was then referred to the emergency room for evaluation, in the emergency room he complained of chest pain so he was advised to be admitted to the hospital.He has very severe COPD, history of lung cancer that was treated with radiation and chemotherapy there is no evidence of recurrence of lung cancer disease when I saw him on the floor he was not wheezing he was at his baseline,3 sets of cardiac enzymes were negative for acute [place] Past Medical History Cardiac Medical History: Reports: Hyperlipidema, Hypertension - MEDICATION Pulmonary Medical History: Reports: Chronic Obstructive Pulmonary Disease (COPD) Malignancy Medical History: Reports: Lung Cancer Musculoskeltal Medical History: Reports: Arthritis Past Surgical History Past Surgical History: Reports: Herniorrhaphy, Other - Collapsed lung surgery Social History Smoking Status: Former Smoker - Stopped in 1998. - Advance Directive Resuscitation Status: Full Code Family History Family History: Reviewed & Not Pertinent Parental Family History Reviewed: Yes Children Family History Reviewed: Yes Sibling(s) Family History Reviewed.: Yes Medication/Allergy Home Medications: Albuterol Sulfate [Ventolin Hfa 8 gm Mdi (1 Mdi/ER Disp)] 2 puff IH Q6HP PRN 01/11/19 Aspirin [Lo-Dose Aspirin EC] 81 mg PO DAILY 01/11/19 Atorvastatin Calcium [Lipitor 40 mg Tablet] 40 mg PO DAILY 01/11/19 Bisoprolol Fumarate [Zebeta 5 mg Tablet] 5 mg PO DAILY 01/11/19 Brimonidine Tartrate [Alphagan P] 1 drop OU BID 01/11/19 Calcitriol [Rocaltrol 0.25 Mcg Capsule] 1 cap PO DAILY 01/11/19 Furosemide [Lasix 40 mg Tablet] 40 mg PO SUTUTHSA@1000 01/11/19 Furosemide [Lasix 40 mg Tablet] 80 mg PO MOWEFR@1000 01/11/19 Losartan/Hydrochlorothiazide [Hyzaar 100-12.5 Tablet] 1 tab PO DAILY 01/11/19 Spironolactone [Aldactone 25 mg Tablet] 25 mg PO DAILY 01/11/19 Allergies/Adverse Reactions: No Known Allergies Allergy (Verified 04/12/18 07:09) Review of Systems Constitutional: ABSENT: chills, fever(s), headache(s), weight gain, weight loss Eyes: ABSENT: visual disturbances Ears: ABSENT: hearing changes Cardiovascular: PRESENT: chest pain. ABSENT: dyspnea on exertion, edema, orthropnea, palpitations Respiratory: ABSENT: cough, hemoptysis Gastrointestinal: ABSENT: abdominal pain, constipation, diarrhea, hematemesis, hematochezia, nausea, vomiting Genitourinary: ABSENT: dysuria, hematuria Musculoskeletal: ABSENT: joint swelling Integumentary: ABSENT: rash, wounds Neurological: ABSENT: abnormal gait, abnormal speech, confusion, dizziness, focal weakness, syncope Psychiatric: ABSENT: anxiety, depression, homidical ideation, suicidal ideation Endocrine: ABSENT: cold intolerance, heat intolerance, menstrual abnormalities, polydipsia, polyuria Hematologic/Lymphatic: ABSENT: easy bleeding, easy bruising, lymphadenopathy Physical Exam Vital Signs: Temp Pulse Resp BP Pulse Ox 98.5 F 82 17 112/61 94 01/11/19 20:01 01/11/19 20:01 01/11/19 20:01 01/11/19 20:01 01/11/19 20:01 Intake & Output 01/10/19 01/11/19 01/12/19 06:59 06:59 06:59 Weight 98.2 kg General appearance: PRESENT: no acute distress, well-developed, well-nourished Head exam: PRESENT: atraumatic, normocephalic Eye exam: PRESENT: conjunctiva pink, EOMI, PERRLA Ear exam: PRESENT: normal external ear exam Mouth exam: PRESENT: moist, tongue midline Neck exam: PRESENT: full ROM Respiratory exam: PRESENT: clear to auscultation [place] Cardiovascular exam: PRESENT: RRR, +S1 Pulses: PRESENT: normal dorsalis pedis pul, +2 pedal pulses bilateral Vascular exam: PRESENT: normal capillary refill GI/Abdominal exam: PRESENT: normal bowel sounds, soft Rectal exam: PRESENT: deferred Neurological exam: PRESENT: alert, awake, oriented to person, oriented to place, oriented to time, oriented to situation, CN II-XII grossly intact Psychiatric exam: PRESENT: appropriate affect, normal mood Skin exam: PRESENT: dry, intact, warm Results Laboratory Results: 01/11/19 12:15 01/11/19 12:15 01/11/19 01/11/19 01/11/19 12:15 12:15 18:55 WBC 8.9 RBC 3.66 L Hgb 10.5 L Hct 32.5 L MCV 89 MCH 28.6 MCHC 32.2 RDW 14.5 H Plt Count 175 Seg Neutrophils % 64.9 Lymphocytes % 16.0 Monocytes % 11.4 Eosinophils % 6.2 H Basophils % 1.5 Absolute Neutrophils 5.8 Absolute Lymphocytes 1.4 Absolute Monocytes 1.0 Absolute Eosinophils 0.6 Absolute Basophils 0.1 Carbonic Acid 1.79 H HCO3/H2CO3 Ratio 18:1 ABG pH 7.37 ABG pCO2 59.5 H ABG pO2 71.6 L ABG HCO3 33.4 H ABG O2 Saturation 93.5 L ABG Base Excess 6.6 FiO2 32% Sodium 141.0 Potassium 4.5 Chloride 99 Carbon Dioxide 35 H Anion Gap 7 BUN 49 H Creatinine 2.34 H Est GFR ( Amer) 34 L Est GFR (Non-Af Amer) 28 L Glucose 128 H Calcium 9.9 Total Bilirubin 0.4 AST 52 ALT 13 L Alkaline Phosphatase 63 Total Protein 7.5 Albumin 4.0 01/11/19 01/11/19 01/11/19 12:15 12:15 17:00 Creatine Kinase 198 H CK-MB (CK-2) 1.26 Troponin I < 0.012 < 0.012 NT-Pro-B Natriuret Pep 378 01/11/19 01/11/19 20:45 20:45 Creatine Kinase 187 H CK-MB (CK-2) 1.20 Troponin I < 0.012 NT-Pro-B Natriuret Pep Impressions: Chest CT 01/11/19 00:00 IMPRESSION: Stable chronic changes when compared to 2017. No evidence of acute process. Chest X-Ray 01/11/19 12:34 IMPRESSION: No acute findings. Old post radiation change right hilum Assessment & Plan - Diagnosis (1) Chest pain Qualifiers: Chest pain type: unspecified Qualified Code(s): R07.9 - Chest pain, unspecified Is this a current diagnosis for this admission?: Yes Plan: Patient is admitted for management (2) Chronic respiratory failure Qualifiers: Respiratory failure complication: hypoxia and hypercapnia Qualified Code(s): J96.11 - Chronic respiratory failure with hypoxia; J96.12 - Chronic respiratory failure with hypercapnia Is this a current diagnosis for this admission?: Yes
[2019-01-11] MEDS: HYDROCHLOROTHIAZIDE 12.5 MG TABLET PO SCH (22:44)
[2019-01-11] MEDS: ASPIRIN 81 MG TABLET, ENT COATED PO SCH (22:44)
[2019-01-11] MEDS: CALCITRIOL 0.25 MCG CAPSULE PO SCH (22:44)
[2019-01-11] MEDS: ATORVASTATIN CALCIUM 40 MG TABLET PO SCH (22:44)
[2019-01-11] MEDS: LOSARTAN POTASSIUM 50 MG TABLET PO SCH (22:44)
[2019-01-11] MEDS: ATENOLOL 50 MG TABLET PO SCH (22:45)
[2019-01-11] MEDS ORDERED: ALBUTEROL SULFATE HFA (90 MCG/PUFF) 200 PUFF/8.5 GM MDI IH PRN (23:00)
[2019-01-12 06:32] LABS: CREATINE KINASE MB 1.13 ng/mL (<4.55)
[2019-01-12 06:34] LABS: TROPONIN I < 0.012 ng/mL
[2019-01-12] MEDS: NORMAL SALINE 1000 ML 1,000 ML IV PRN (11:46)
[2019-01-12] MEDS: LOSARTAN POTASSIUM 50 MG TABLET PO SCH (11:47)
[2019-01-12] MEDS: ATORVASTATIN CALCIUM 40 MG TABLET PO SCH (11:47)
[2019-01-12] MEDS: CALCITRIOL 0.25 MCG CAPSULE PO SCH (11:48)
[2019-01-12] MEDS: ASPIRIN 81 MG TABLET, ENT COATED PO SCH (11:48)
[2019-01-12] MEDS: ATENOLOL 50 MG TABLET PO SCH (11:48)
[2019-01-12] MEDS: HYDROCHLOROTHIAZIDE 12.5 MG TABLET PO SCH (11:48)
[2019-01-12] MEDS: BRIMONIDINE TARTRATE 0.2% OPH SOLN 5 ML OU SCH ×2 (11:49→19:17)
[2019-01-12 13:19] LABS: TROPONIN I < 0.012 ng/mL
[2019-01-13] MEDS: NORMAL SALINE 1000 ML 1,000 ML IV PRN (03:59)
[2019-01-13] MEDS: ASPIRIN 81 MG TABLET, ENT COATED PO SCH (10:26)
[2019-01-13] MEDS: BRIMONIDINE TARTRATE 0.2% OPH SOLN 5 ML OU SCH (10:26)
[2019-01-13] MEDS: ATORVASTATIN CALCIUM 40 MG TABLET PO SCH (10:26)
[2019-01-13] MEDS: LOSARTAN POTASSIUM 50 MG TABLET PO SCH (10:27)
[2019-01-13] MEDS: CALCITRIOL 0.25 MCG CAPSULE PO SCH (10:27)
[2019-01-13] MEDS: HYDROCHLOROTHIAZIDE 12.5 MG TABLET PO SCH (10:27)
[2019-01-13] MEDS: ATENOLOL 50 MG TABLET PO SCH (10:27)
[2019-01-13 17:01] VITALS: BP 129/68
--- NOTE | 2019-01-13 20:46 | PDOC DISCHARGE SUMMARY ---
General - Admit/Disc Date/PCP Admission Date/Primary Care Provider: 01/11/19 14:52 CANDIE MARSH MD Discharge Date: 01/13/19 - Discharge Diagnosis (1) Chest pain Is this a current diagnosis for this admission?: Yes (2) Chronic respiratory failure Is this a current diagnosis for this admission?: Yes - Additional Information Resuscitation Status: Full Code Discharge Diet: Cardiac Discharge Activity: Activity As Tolerated, Balance Activity w/Rest, Slowly Increase Activity Home Medications: Albuterol Sulfate [Ventolin Hfa 8 gm Mdi (1 Mdi/ER Disp)] 2 puff IH Q6HP PRN 01/11/19 Aspirin [Lo-Dose Aspirin EC] 81 mg PO DAILY 01/11/19 Atorvastatin Calcium [Lipitor 40 mg Tablet] 40 mg PO DAILY 01/11/19 Bisoprolol Fumarate [Zebeta 5 mg Tablet] 5 mg PO DAILY 01/11/19 Brimonidine Tartrate [Alphagan P] 1 drop OU BID 01/11/19 Calcitriol [Rocaltrol 0.25 mcg Capsule] 1 cap PO DAILY 01/11/19 Furosemide [Lasix 40 mg Tablet] 40 mg PO SUTUTHSA@1000 01/11/19 Losartan/Hydrochlorothiazide [Hyzaar 100-12.5 Tablet] 1 tab PO DAILY 01/11/19 History of Present Illness History of Present Illness: KATHRYN GARCIA is a 68 year old male, He has chronic respiratory failure on home oxygen he saw Dr. Zhang cardiology in his office today the oxygen saturation was low, he was then referred to the emergency room for evaluation, in the emergency room he complained of chest pain so he was advised to be admitted to the hospital.He has very severe COPD, history of lung cancer that was treated with radiation and chemotherapy there is no evidence of recurrence of lung cancer disease when I saw him on the floor he was not wheezing he was at his baseline,3 sets of cardiac enzymes were negative for acute [place] Hospital Course Hospital Course: Patient was admitted for the management of chest pain with a background of chronic obstructive lung disease, 3 sets of cardiac enzymes negative for acute [place] Physical Exam Vital Signs: Temp Pulse Resp BP Pulse Ox 97.6 F 77 20 129/68 H 97 01/13/19 17:04 01/13/19 17:04 01/13/19 17:04 01/13/19 17:04 01/13/19 17:04 Intake & Output 01/12/19 01/13/19 01/14/19 06:59 06:59 06:59 Intake Total 666 3512 596 Output Total 400 2110 500 Balance 266 1402 96 Weight 98.2 kg General appearance: PRESENT: no acute distress, well-developed, well-nourished Head exam: PRESENT: atraumatic, normocephalic Eye exam: PRESENT: conjunctiva pink, EOMI, PERRLA Ear exam: PRESENT: normal external ear exam Mouth exam: PRESENT: moist, tongue midline Neck exam: PRESENT: full ROM Respiratory exam: PRESENT: clear to auscultation [place] Cardiovascular exam: PRESENT: RRR, +S1, +S2 Vascular exam: PRESENT: normal capillary refill GI/Abdominal exam: PRESENT: normal bowel sounds, soft Rectal exam: PRESENT: deferred Neurological exam: PRESENT: alert Psychiatric exam: PRESENT: appropriate affect, normal mood Skin exam: PRESENT: dry, intact, warm Results Laboratory Results: 01/11/19 12:15 01/11/19 12:15 01/11/19 01/11/19 01/11/19 12:15 12:15 17:00 Creatine Kinase 198 H CK-MB (CK-2) 1.26 Troponin I < 0.012 < 0.012 NT-Pro-B Natriuret Pep 378 01/11/19 01/11/19 01/12/19 20:45 20:45 05:00 Creatine Kinase 187 H 158 CK-MB (CK-2) 1.20 Troponin I < 0.012 NT-Pro-B Natriuret Pep 01/12/19 01/12/19 01/12/19 05:00 12:34 12:34 Creatine Kinase 139 CK-MB (CK-2) 1.13 1.00 Troponin I < 0.012 < 0.012 NT-Pro-B Natriuret Pep Impressions: Chest CT 01/11/19 00:00 IMPRESSION: Stable chronic changes when compared to 2017. No evidence of acute process. Chest X-Ray 01/11/19 12:34 IMPRESSION: No acute findings. Old post radiation change right hilum Qualifiers - * PATIENT BEING DISCHARGED WITH ANY OF THE FOLLOWING DIAGNOSIS: No
== END 2019-01-13 17:20 | disposition home or self-care (01) ==
LOC: ER 11:59 → EH 14:52 → 5 16:51
PROVIDERS: ADMIT Internal Medicine; ATTEND Internal Medicine
DX: R07.9 Chest pain, unspecified (principal); J96.12 Chronic respiratory failure with hypercapnia; J96.11 Chronic respiratory failure with hypoxia; Z79.899 Other long term (current) drug therapy; J44.9 Chronic obstructive pulmonary disease, unspecified; I10 Essential (primary) hypertension; E78.5 Hyperlipidemia, unspecified; N28.9 Disorder of kidney and ureter, unspecified; Z79.82 Long term (current) use of aspirin; Z99.81 Dependence on supplemental oxygen; Z85.118 Personal history of other malignant neoplasm of bronchus and lung; Z92.3 Personal history of irradiation; Z92.21 Personal history of antineoplastic chemotherapy; Z98.890 Other specified postprocedural states; Z87.891 Personal history of nicotine dependence
CPT/HCPCS: 93005; 94640; 99285; 96374; 36415 ×2; 82553 ×2; 82962; 82803; 82550 ×2; 85025; 80053; 84484 ×2; 83880; 71045; 71250; 93010; 36600; G0378 ×4; A9270 ×11; J2930; J7030 ×3; J3490 ×3; J7620

== ENCOUNTER → 2019-04-30 | Outpatient (CLI) | payer MEDICARE, MEDICAID ==
--- NOTE | 2019-04-30 16:45 | RADIOLOGY REPORT (SQ) ---
EXAM DESCRIPTION: KNEE RIGHT 2 VIEWS COMPLETED DATE/TIME: 04/30/2019 1:48 pm REASON FOR STUDY: PAIN IN RIGHT KNEE COMPARISON: None. NUMBER OF VIEWS: Two views right knee LIMITATIONS: None. FINDINGS: No fracture or bone lesion. Heavy vascular calcification. Joint effusion. OTHER: No other significant finding. IMPRESSION: As above. TECHNICAL DOCUMENTATION: JOB ID: [id number] Reading location - IP/workstation name: [email or web address]
== END ==
LOC: OD 13:13
PROVIDERS: ATTEND Internal Medicine
DX: M25.561 Pain in right knee (principal); M25.461 Effusion, right knee

== ENCOUNTER → 2019-05-22 | Outpatient (CLI) | payer MEDICARE, MEDICAID ==
[2019-05-22 16:35] LABS: ABSOLUTE BASOPHILS # (AUTO) 0.1 10^3/uL (0.0-0.2); ABSOLUTE EOSINOPHILS # (AUTO) 0.4 10^3/uL (0.0-0.6); ABSOLUTE LYMPHOCYTES (AUTO) 1.4 10^3/uL (0.5-4.7); ABSOLUTE NEUT (AUTO) 6.8 10^3/uL (1.7-8.2); BASOPHILS % (AUTO) 1.2 % (0-2); EOSINOPHILS % (AUTO) 4.3 % (0-6); HEMOGLOBIN 9.3 g/dL (13.5-17.0); LYMPHOCYTES % (AUTO) 14.4 % (13-45); MEAN CORPUSCULAR HEMOGLOBIN 28.5 pg (27.0-33.4); MEAN CORPUSCULAR HGB CONC 32.1 g/dL (32.0-36.0); MEAN CORPUSCULAR VOLUME 89 fl (80-97); MONOCYTES % (AUTO) 9.9 % (3-13); PLATELET COUNT 205 10^3/uL (150-450); RED BLOOD COUNT 3.27 10^6/uL (4.35-5.55); RED CELL DISTRIBUTION WIDTH 14.5 % (11.5-14.0); SEGMENTED NEUTROPHILS % (AUTO) 70.2 % (42-78); TOTAL CELLS COUNTED % (AUTO) 100 %; WHITE BLOOD COUNT 9.7 10^3/uL (4.0-10.5)
[2019-05-22 16:49] LABS: APPEARANCE,URINE CLEAR; BILIRUBIN,URINE NEGATIVE (NEGATIVE); COLOR,URINE YELLOW; GLUCOSE, URINE NEGATIVE (NEGATIVE); KETONES,URINE NEGATIVE (NEGATIVE); LEUKOCYTE ESTERASE,URINE NEGATIVE (NEGATIVE); NITRITE,URINE NEGATIVE (NEGATIVE); PROTEIN,URINE NEGATIVE (NEGATIVE); UROBILINOGEN,URINE NEGATIVE mg/dL (<2.0)
[2019-05-22 16:55] LABS: ALBUMIN 4.3 g/dL (3.5-5.0); ALKALINE PHOSPHATASE 58 U/L (38-126); ANION GAP 7 (5-19); ASPARTATE AMINO TRANSFERASE 59 U/L (17-59); BILIRUBIN,DIRECT 0.2 mg/dL (0.0-0.4); BILIRUBIN,TOTAL 0.4 mg/dL (0.2-1.3); BLOOD UREA NITROGEN 40 mg/dL (7-20); CALCIUM 9.8 mg/dL (8.4-10.2); CARBON DIOXIDE 34 mmol/L (22-30); CHLORIDE 99 mmol/L (98-107); GLUCOSE 105 mg/dL (75-110); POTASSIUM 4.7 mmol/L (3.6-5.0); TOTAL PROTEIN 7.8 g/dL (6.3-8.2)
[2019-05-24 15:36] LABS: A/G RATIO 0.9 (0.7-1.7); ALBUMIN 2 3.5 g/dL (2.9-4.4); ALPHA-2-GLOBULIN 2 0.9 g/dL (0.4-1.0); BETA GLOBULINS 1.2 g/dL (0.7-1.3); GAMMA GLOBULIN 1.4 g/dL (0.4-1.8); GLOBULIN TOTAL 3.8 g/dL (2.2-3.9); MONOCLONAL SPIKE Not Observed g/dL (Not Observ); PROTEIN TOTAL SERUM 7.3 g/dL (6.0-8.5)
== END ==
LOC: OD 14:58
PROVIDERS: ATTEND Internal Medicine Nephrology
DX: N17.9 Acute kidney failure, unspecified (principal); N18.3 Chronic kidney disease, stage 3 (moderate); D63.1 Anemia in chronic kidney disease; I50.9 Heart failure, unspecified; N25.0 Renal osteodystrophy
CPT/HCPCS: 36415; 80053; 81001; 83735; 84165; 84443; 85025

== ENCOUNTER → 2019-05-31 | Outpatient (CLI) | payer MEDICAID, MEDICARE ==
--- NOTE | 2019-05-31 10:08 | RADIOLOGY REPORT (SQ) ---
EXAM DESCRIPTION: U/S RETROPERITON (RENAL/AORTA) COMPLETED DATE/TIME: 05/31/2019 9:43 am REASON FOR STUDY: I12.9 HYPERTENSIVE CHRONIC KIDNEY DISEASE W STG 1-4/UNSP CHR KDNY I12.9 HYPERTENS ABELINO CHRONIC KIDNEY DISEASE W STG 1-4/UNSP CHR N18.3 CHRONIC KIDNEY DISEASE, STAGE 3 (MODERATE) COMPARISON: 02/15/2018 TECHNIQUE: Dynamic and static grayscale images acquired of the kidneys and bladder and recorded on P ACS. Additional selected color Doppler and spectral images recorded. LIMITATIONS: None. FINDINGS: RIGHT KIDNEY: The right kidney measures 10.6 cm in length. Normal echogenicity. There are multiple cortical cysts. The largest measures approximately 7 cm. No hydronephrosis. No josh cifications. LEFT KIDNEY: Normal size. Normal echogenicity. No solid or suspicious masses. Small hyperattenu ating lesions demonstrated on prior chest CT are less apparent on ultrasound. No hydronephrosis. No calcifications. BLADDER: No masses. OTHER FINDINGS: No other significant finding. IMPRESSION: Approximately 7 cm right renal cyst. Smaller cortical cyst demonstrated on prior CT [address] are not appreciated by ultrasound. No hydronephrosis. TECHNICAL DOCUMENTATION: JOB ID: [id number] [employer]- All Rights Reserved Reading location - IP/workstation name: [email or web address]
== END ==
LOC: RAD 09:11
PROVIDERS: ATTEND Internal Medicine Nephrology
DX: I12.9 Hypertensive chronic kidney disease with stage 1 through stage 4 chronic kidney disease, or unspecified chronic kidney disease (principal); N18.3 Chronic kidney disease, stage 3 (moderate); N28.1 Cyst of kidney, acquired
CPT/HCPCS: 76770

== ENCOUNTER → 2019-07-18 | Outpatient (CLI) | payer MEDICARE ==
[2019-07-18 13:21] LABS: IRON(TIBC) 11.1 ug/dL (49-181)
== END ==
LOC: OD 12:12
PROVIDERS: ATTEND Internal Medicine Nephrology
DX: N18.3 Chronic kidney disease, stage 3 (moderate) (principal); D63.1 Anemia in chronic kidney disease
CPT/HCPCS: 36415; 82728; 83540; 83550

== ENCOUNTER → 2019-07-23 | Outpatient (CLI) | payer MEDICARE ==
[2019-07-23 14:45] LABS: ABSOLUTE BASOPHILS # (AUTO) 0.1 10^3/uL (0.0-0.2); ABSOLUTE EOSINOPHILS # (AUTO) 0.4 10^3/uL (0.0-0.6); ABSOLUTE MONOCYTES (AUTO) 0.8 10^3/uL (0.1-1.4); BASOPHILS % (AUTO) 0.8 % (0-2); EOSINOPHILS % (AUTO) 4.3 % (0-6); HEMATOCRIT 34.9 % (37.9-51.0); HEMOGLOBIN 11.3 g/dL (13.5-17.0); LYMPHOCYTES % (AUTO) 12.6 % (13-45); MEAN CORPUSCULAR HEMOGLOBIN 27.9 pg (27.0-33.4); MEAN CORPUSCULAR HGB CONC 32.4 g/dL (32.0-36.0); MEAN CORPUSCULAR VOLUME 86 fl (80-97); MONOCYTES % (AUTO) 9.8 % (3-13); PLATELET COUNT 272 10^3/uL (150-450); RED BLOOD COUNT 4.06 10^6/uL (4.35-5.55); RED CELL DISTRIBUTION WIDTH 15.6 % (11.5-14.0); SEGMENTED NEUTROPHILS % (AUTO) 72.5 % (42-78); TOTAL CELLS COUNTED % (AUTO) 100 %; WHITE BLOOD COUNT 8.3 10^3/uL (4.0-10.5)
[2019-07-23 14:56] LABS: ANION GAP 8 (5-19); BLOOD UREA NITROGEN 23 mg/dL (7-20); CALCIUM 9.8 mg/dL (8.4-10.2); CHLORIDE 92 mmol/L (98-107); GLUCOSE 108 mg/dL (75-110); POTASSIUM 4.3 mmol/L (3.6-5.0)
[2019-07-23 14:57] LABS: APPEARANCE,URINE CLEAR; BILIRUBIN,URINE NEGATIVE (NEGATIVE); COLOR,URINE YELLOW; GLUCOSE, URINE NEGATIVE (NEGATIVE); KETONES,URINE NEGATIVE (NEGATIVE); LEUKOCYTE ESTERASE,URINE NEGATIVE (NEGATIVE); NITRITE,URINE NEGATIVE (NEGATIVE); PROTEIN,URINE NEGATIVE (NEGATIVE); URINE SPECIFIC GRAVITY 1.009; UROBILINOGEN,URINE NEGATIVE mg/dL (<2.0)
[2019-07-23 15:11] LABS: CARBON DIOXIDE 40 mmol/L (22-30)
== END ==
LOC: OD 13:59
PROVIDERS: ATTEND Physician Assistant Medical
DX: N17.9 Acute kidney failure, unspecified (principal); I13.0 Hypertensive heart and chronic kidney disease with heart failure and stage 1 through stage 4 chronic kidney disease, or unspecified chronic kidney disease; I50.9 Heart failure, unspecified; N18.3 Chronic kidney disease, stage 3 (moderate); D63.1 Anemia in chronic kidney disease; E87.5 Hyperkalemia
CPT/HCPCS: 36415; 80048; 81001; 83970; 84100; 85025

== ENCOUNTER 2019-07-31 09:00 | Outpatient (CLI) | payer MEDICARE ==
[2019-07-31] MEDS ORDERED: FERRIC CARBOXYMALTOSE 750 MG in NORMAL SALINE 250 ML IV PRN (09:10)
[2019-07-31 09:14] VITALS: BP 128/57
== END 2019-07-31 11:00 | disposition home or self-care (01) ==
LOC: II 09:00 → 5TH 09:03 → II 11:00
PROVIDERS: ATTEND Physician Assistant Medical
PROC: 3E033GC Introduction of Other Therapeutic Substance into Peripheral Vein, Percutaneous Approach (ICD-10-PCS; principal; 2019-07-31)
DX: D50.9 Iron deficiency anemia, unspecified (principal)
CPT/HCPCS: 96365; J7050; J1439

== ENCOUNTER 2019-08-07 09:50 | Outpatient (CLI) | payer MEDICARE ==
[~2019-08-07 09:50] MED LIST changes: -EPINEPHRINE INJ/PF 1 MG/1 ML AMPULE ONE; +FERRIC CARBOXYMALTOSE 750 MG in NORMAL SALINE 250 ML IV PRN; -KETOROLAC TROMETHAMINE 0.45% 4 DROP/0.4 ML DROPERETTE OS PRN
[2019-08-07 10:11] VITALS: BP 98/58
== END 2019-08-07 11:07 | disposition home or self-care (01) ==
LOC: II 09:50 → 5TH 09:57 → II 11:07
PROVIDERS: ATTEND Physician Assistant Medical
PROC: 3E033GC Introduction of Other Therapeutic Substance into Peripheral Vein, Percutaneous Approach (ICD-10-PCS; principal; 2019-08-07)
DX: D50.9 Iron deficiency anemia, unspecified (principal)
CPT/HCPCS: 96365; J7050; J1439

== ENCOUNTER → 2019-10-28 | Outpatient (CLI) | payer MEDICARE ==
[2019-10-28 16:06] LABS: APPEARANCE,URINE CLEAR; BILIRUBIN,URINE NEGATIVE (NEGATIVE); COLOR,URINE STRAW; GLUCOSE, URINE NEGATIVE (NEGATIVE); KETONES,URINE NEGATIVE (NEGATIVE); LEUKOCYTE ESTERASE,URINE NEGATIVE (NEGATIVE); NITRITE,URINE NEGATIVE (NEGATIVE); PROTEIN,URINE NEGATIVE (NEGATIVE); URINE SPECIFIC GRAVITY 1.011; UROBILINOGEN,URINE NEGATIVE mg/dL (<2.0)
[2019-10-28 16:16] LABS: ABSOLUTE BASOPHILS # (AUTO) 0.1 10^3/uL (0.0-0.2); ABSOLUTE EOSINOPHILS # (AUTO) 0.5 10^3/uL (0.0-0.6); ABSOLUTE LYMPHOCYTES (AUTO) 1.4 10^3/uL (0.5-4.7); ABSOLUTE MONOCYTES (AUTO) 0.9 10^3/uL (0.1-1.4); BASOPHILS % (AUTO) 1.2 % (0-2); EOSINOPHILS % (AUTO) 5.7 % (0-6); HEMOGLOBIN 10.7 g/dL (13.5-17.0); LYMPHOCYTES % (AUTO) 15.3 % (13-45); MEAN CORPUSCULAR HEMOGLOBIN 28.6 pg (27.0-33.4); MEAN CORPUSCULAR HGB CONC 32.3 g/dL (32.0-36.0); MEAN CORPUSCULAR VOLUME 89 fl (80-97); MONOCYTES % (AUTO) 10.5 % (3-13); PLATELET COUNT 148 10^3/uL (150-450); RED BLOOD COUNT 3.72 10^6/uL (4.35-5.55); SEGMENTED NEUTROPHILS % (AUTO) 67.3 % (42-78); TOTAL CELLS COUNTED % (AUTO) 100 %
[2019-10-28 16:41] LABS: ANION GAP 6 (5-19); BLOOD UREA NITROGEN 28 mg/dL (7-20); CALCIUM 9.6 mg/dL (8.4-10.2); CARBON DIOXIDE 37 mmol/L (22-30); CHLORIDE 100 mmol/L (98-107); GLUCOSE 117 mg/dL (75-110); PHOSPHORUS 3.5 mg/dL (2.5-4.5); POTASSIUM 4.5 mmol/L (3.6-5.0)
== END ==
LOC: OD 15:16
PROVIDERS: ATTEND Physician Assistant Medical
DX: N17.9 Acute kidney failure, unspecified (principal); I13.0 Hypertensive heart and chronic kidney disease with heart failure and stage 1 through stage 4 chronic kidney disease, or unspecified chronic kidney disease; I50.9 Heart failure, unspecified; N18.3 Chronic kidney disease, stage 3 (moderate); D63.1 Anemia in chronic kidney disease; E87.5 Hyperkalemia
CPT/HCPCS: 36415; 80048; 81001; 82728; 83540; 83550; 83970; 84100; 85025

== ENCOUNTER → 2020-05-19 | Outpatient (CLI) | payer MEDICARE ==
--- NOTE | 2020-05-19 14:01 | RADIOLOGY REPORT (SQ) ---
EXAM DESCRIPTION: BARIUM SWALLOW ESOPHAGUS IMAGES COMPLETED DATE/TIME: 05/19/2020 1:10 pm REASON FOR STUDY: R13.13 DYSPHAGIA, PHARYNGEAL PHASE R13.13 DYSPHAGIA, PHARYNGEAL PHASE COMPARISON: None. TECHNIQUE: Under fluoroscopic guidance, patient ingested effervescent granules followed by thick and thin barium. Fluoroscopic spot images and routine radiographic images acquired and stored on PACS. 12 MM BARIUM TABLET GIVEN: Barium tablet stuck in the distal esophagus for approximately 15 minutes b efore passing into the stomach. LIMITATIONS: None. FLUOROSCOPY TIME: FLUORO TIME: 3.2 minutes 10 images saved to PACS. FINDINGS: NEUROMUSCULAR COORDINATION OF SWALLOW: Normal. A single episode of silent aspiration was observed ; possibly related to large amount of barium swallowed. ESOPHAGEAL MOTILITY: Moderate tertiary contractions with marked esophageal dysmotility noted. ESOPHAGEAL MUCOSA: Normal mucosa without masses or ulceration. GASTRO-ESOPHAGEAL JUNCTION: Smooth tapered narrowing of the distal esophagus which impeded the passag e of a 12 mm barium tablet. No hiatal hernia or reflux. NON-GI TRACT STRUCTURES: No significant finding. OTHER: No other significant finding. IMPRESSION: SMOOTH TAPERED NARROWING OF DISTAL ESOPHAGUS IMPEDING THE PASSAGE OF 12 MM BARIUM TABLET . MODERATE TERTIARY CONTRACTIONS WITH MARKED ESOPHAGEAL DYSMOTILITY. SINGLE EPISODE OF SILENT ASPIR ATION OBSERVED. RECOMMENDATION: NONE COMMENT: None Quality ID [id number]: Final reports for procedures using fluoroscopy that document radiation exposure batool blanca, or exposure time and number of fluorographic images (if radiation exposure indices are not avail able) TECHNICAL DOCUMENTATION: JOB ID: [id number] 2010 [employer]- All Rights Reserved Reading location - IP/workstation name: [email or web address]
== END ==
LOC: RAD 12:14
PROVIDERS: ATTEND Internal Medicine
DX: R13.13 Dysphagia, pharyngeal phase (principal)
CPT/HCPCS: 74220

== ENCOUNTER → 2020-10-26 | Outpatient (CLI) | payer MEDICARE ==
[2020-10-26 15:14] LABS: APPEARANCE,URINE CLEAR; BILIRUBIN,URINE NEGATIVE (NEGATIVE); COLOR,URINE YELLOW; GLUCOSE, URINE NEGATIVE (NEGATIVE); KETONES,URINE NEGATIVE (NEGATIVE); LEUKOCYTE ESTERASE,URINE MODERATE (NEGATIVE); NITRITE,URINE NEGATIVE (NEGATIVE); PROTEIN,URINE NEGATIVE (NEGATIVE); URINE SPECIFIC GRAVITY 1.015; UROBILINOGEN,URINE NEGATIVE mg/dL (<2.0)
[2020-10-26 15:15] LABS: ABSOLUTE BASOPHILS # (AUTO) 0.1 10^3/uL (0.0-0.2); ABSOLUTE EOSINOPHILS # (AUTO) 0.5 10^3/uL (0.0-0.6); ABSOLUTE LYMPHOCYTES (AUTO) 1.4 10^3/uL (0.5-4.7); ABSOLUTE MONOCYTES (AUTO) 1.1 10^3/uL (0.1-1.4); ABSOLUTE NEUT (AUTO) 8.8 10^3/uL (1.7-8.2); BASOPHILS % (AUTO) 1.1 % (0-2); HEMATOCRIT 32.6 % (37.9-51.0); HEMOGLOBIN 10.6 g/dL (13.5-17.0); LYMPHOCYTES % (AUTO) 11.8 % (13-45); MEAN CORPUSCULAR HEMOGLOBIN 28.1 pg (27.0-33.4); MEAN CORPUSCULAR HGB CONC 32.5 g/dL (32.0-36.0); MEAN CORPUSCULAR VOLUME 86 fl (80-97); PLATELET COUNT 267 10^3/uL (150-450); RED BLOOD COUNT 3.78 10^6/uL (4.35-5.55); RED CELL DISTRIBUTION WIDTH 15.2 % (11.5-14.0); SEGMENTED NEUTROPHILS % (AUTO) 74.1 % (42-78); TOTAL CELLS COUNTED % (AUTO) 100 %; WHITE BLOOD COUNT 11.8 10^3/uL (4.0-10.5)
[2020-10-26 15:28] LABS: ALBUMIN 4.2 g/dL (3.5-5.0); ANION GAP 6 (5-19); BLOOD UREA NITROGEN 27 mg/dL (7-20); CALCIUM 9.6 mg/dL (8.4-10.2); CARBON DIOXIDE 36 mmol/L (22-30); CHLORIDE 100 mmol/L (98-107); GLUCOSE 123 mg/dL (75-110); IRON(TIBC) 48.8 ug/dL (49-181); PHOSPHORUS 3.4 mg/dL (2.5-4.5); POTASSIUM 4.7 mmol/L (3.6-5.0)
== END ==
LOC: OD 14:33
PROVIDERS: ATTEND Internal Medicine Nephrology
DX: I12.9 Hypertensive chronic kidney disease with stage 1 through stage 4 chronic kidney disease, or unspecified chronic kidney disease (principal); N18.31 Chronic kidney disease, stage 3a; D63.1 Anemia in chronic kidney disease; N25.0 Renal osteodystrophy
CPT/HCPCS: 36415; 80069; 81001; 82728; 83540; 83550; 83970; 85025